=== PATIENT | female | born 1960 | race Caucasian/White ===

== ENCOUNTER 2019-01-03 15:43 | Emergency (ER) | payer OTHER ==
[2019-01-03] MEDS ORDERED: IPRATROPIUM BROM 0.5MG/2.5ML ONE (16:09)
[2019-01-03] MEDS ORDERED: ALBUTEROL 2.5 MG/3 ML NEB SOL ONE (16:09)
--- NOTE | 2019-01-03 17:11 | ER ---
Nurse's Notes [facility] Name: Sera Gonzalez Age: 58 yrs Sex: Female : 1960 Arrival Date: 01/03/2019 Time: 15:47 Bed 13 Private MD: Diagnosis: Bronchitis, not specified as acute or chronic Presentation: 01/03 15:53 Presenting complaint: Patient states: fever Tmax 101 , fatigue, cough since Monday. Insurance company prescribed Tamiflu and Prednisone but painful cough has been persistent. Transition of care: patient was not received from another setting of care. Onset of symptoms was December 30, 2018. Risk Assessment: Do you want to hurt yourself or someone else? Patient reports no desire to harm self or others. Care prior to arrival: None. 15:53 Method Of Arrival: Ambulatory sv 15:53 Acuity: SHAKA 3 sv 15:53 Initial Sepsis Screen: Does the patient meet any 2 criteria? No. Patient's initial sv sepsis screen is negative. Does the patient have a suspected source of infection? No. Patient's initial sepsis screen is negative. Triage Assessment: 15:53 General: Appears in no apparent distress. uncomfortable, Behavior is cooperative, sv appropriate for age. Neuro: Level of Consciousness is awake, alert, obeys commands, Gait is steady. Respiratory: Reports cough that is persistent pain with cough pain with respiration Respiratory effort is even, unlabored, Respiratory pattern is regular, symmetrical. Historical: - Allergies: 15:55 No Known Allergies; sv - Home Meds: 15:55 Singulair Oral [Active]; Clonazepam Oral [Active]; sv - PMHx: 15:55 High Cholesterol; Anxiety; sv - PSHx: 15:55 None; sv - Immunization history:: Adult Immunizations unknown. - Ebola Screening: : No symptoms or risks identified at this time. - Social history:: Smoking status: Patient/guardian denies using tobacco. Screenin:59 Abuse screen: Denies threats or abuse. Denies injuries from another. Nutritional ph screening: No deficits noted. Tuberculosis screening: No symptoms or risk factors identified. Fall Risk None identified. Assessment: 16:15 General: Appears in no apparent distress. uncomfortable, Behavior is calm, cooperative, ph appropriate for age. Pain: Complains of pain in left lateral posterior chest, right lateral posterior chest, left lateral anterior chest and right lateral anterior chest. 16:15 Neuro: Level of Consciousness is awake, alert, obeys commands, Oriented to person, ph place, time, situation. Cardiovascular: Capillary refill < 3 seconds in bilateral fingers Patient's skin is warm and dry. Respiratory: Reports cough that is Airway is patent Respiratory effort is even, unlabored, Respiratory pattern is regular, symmetrical, Breath sounds are coarse bilaterally. Breath sounds with wheezes in right upper lobe. GI: No signs and/or symptoms were reported involving the gastrointestinal system. Derm: Skin is intact, is healthy with good turgor, Skin is pink, warm \T\ dry. Musculoskeletal: Circulation, motion, and sensation intact. Range of motion: intact in all extremities. 17:06 Reassessment: Patient appears in no apparent distress at this time. Patient and/or ph family updated on plan of care and expected duration. Pain level reassessed. Patient is alert, oriented x 3, equal unlabored respirations, skin warm/dry/pink. Vital Signs: 15:55 BP 132 / 84; Pulse 94; Resp 20; Temp 97.6; Pulse Ox 95% ; Weight 64.41 kg; Height 5 ft. sv 6 in. (167.64 cm); Pain 2/10; 17:07 BP 127 / 86; Pulse 94; Resp 18; Pulse Ox 97% on R/A; ph 15:55 Body Mass Index 22.92 (64.41 kg, 167.64 cm) sv ED Course: 15:47 Patient arrived in ED. rg4 15:55 Triage completed. sv 15:56 Arm band placed on. sv 15:57 Natalie Hendricks RN is Primary Nurse. ph 15:57 Adele Chung FNP-C is PHCP. kb 15:57 Kendell Palacio MD is Attending Physician. kb 15:59 Patient has correct armband on for positive identification. Bed in low position. Call ph light in reach. Side rails up X 1. Pulse ox on. NIBP on. 17:12 Chest Pa And Lat (2 Views) XRAY In Process Unspecified. EDMS 17:30 No provider procedures requiring assistance completed. Patient did not have IV access ph during this emergency room visit. Administered Medications: 16:15 Drug: DuoNeb (3:1) (2.5 mg - 0.5 mg) 3 ml Route: Nebulizer; ph 17:30 Follow up: Response: No adverse reaction ph Outcome: 17:10 Discharge ordered by . kb 17:58 Patient left the ED. ph 17:58 Discharged to home ambulatory. ph 17:58 Condition: good 17:58 Discharge instructions given to patient, Instructed on discharge instructions, follow up and referral plans. medication usage, Demonstrated understanding of instructions, follow-up care, medications, Prescriptions given X 1. Signatures: Dispatcher [employer] EDAdele Messer, Brittany Love, RN RN Natalie Hendricks RN RN Deedee Vigil rg4 Corrections: (The following items were deleted from the chart) 16:07 15:53 Presenting complaint: Patient states: fever Tmax 101 , fatigue, cough since sv Mehrdad. Insurance company prescribed Tamiflu and Prednisone. 17:30 16:15 Pain: Complains of pain in left lateral posterior chest, right lateral posterior ph chest, left lateral anterior chest and right lateral anterior chest ph
--- NOTE | 2019-01-03 17:11 | EDPHYS ---
Physician Documentation [facility] Name: Sera Gonzalez Age: 58 yrs Sex: Female : 1960 Arrival Date: 01/03/2019 Time: 15:47 Bed 13 Private MD: PETE Physician Kendell Palacio HPI: 01/03 16:01 This 58 yrs old Female presents to ER via Ambulatory with complaints of kb Painful Cough. 16:01 The patient or guardian reports cough, that is intermittent, described as moderate, kb with no sputum, difficulty breathing, flu symptoms, low-grade fever, myalgias. Onset: The symptoms/episode began/occurred 5 day(s) ago. Severity of symptoms: At their worst the symptoms were moderate, in the emergency department the symptoms are unchanged. Modifying factors: The symptoms are alleviated by nothing, the symptoms are aggravated by nothing. Associated signs and symptoms: Pertinent positives: fever, Pertinent negatives: chest pain, diarrhea, ear ache, nausea, rhinorrhea, sore throat, vomiting. The patient has not experienced similar symptoms in the past. The patient has not recently seen a physician. Pt reports cough, congestion, fever, body aches that started on Monday. Called the MD line and was given tamiflu and prednisone. States she hasn't had a fever since then, but her cough has been getting worse and she feels run down. . Historical: - Allergies: 15:55 No Known Allergies; sv - Home Meds: 15:55 Singulair Oral [Active]; Clonazepam Oral [Active]; sv - PMHx: 15:55 High Cholesterol; Anxiety; sv - PSHx: 15:55 None; sv - Immunization history:: Adult Immunizations unknown. - Ebola Screening: : No symptoms or risks identified at this time. - Social history:: Smoking status: Patient/guardian denies using tobacco. ROS: 16:01 ENT: Negative for injury, pain, and discharge, Neck: Negative for injury, pain, and kb swelling, Cardiovascular: Negative for chest pain, palpitations, and edema, Abdomen/GI: Negative for abdominal pain, nausea, vomiting, diarrhea, and constipation, Back: Negative for injury and pain, : Negative for injury, bleeding, discharge, and swelling, MS/Extremity: Negative for injury and deformity, Skin: Negative for injury, rash, and discoloration, Neuro: Negative for headache, weakness, numbness, tingling, and seizure. 16:01 Constitutional: Positive for body aches, fatigue, fever, malaise. 16:01 Respiratory: Positive for cough, Negative for dyspnea on exertion, hemoptysis, orthopnea, pleurisy, shortness of breath, sputum production, wheezing. Exam: 16:01 Constitutional: This is a well developed, well nourished patient who is awake, alert, kb and in no acute distress. Head/Face: Normocephalic, atraumatic. ENT: Nares patent. No nasal discharge, no septal abnormalities noted. Tympanic membranes are normal and external auditory canals are clear. Oropharynx with no redness, swelling, or masses, exudates, or evidence of obstruction, uvula midline. Mucous membranes moist. Neck: Trachea midline, no thyromegaly or masses palpated, and no cervical lymphadenopathy. Supple, full range of motion without nuchal rigidity, or vertebral point tenderness. No Meningismus. Chest/axilla: Normal chest wall appearance and motion. Nontender with no deformity. No lesions are appreciated. Cardiovascular: Regular rate and rhythm with a normal S1 and S2. No gallops, murmurs, or rubs. Normal PMI, no JVD. No pulse deficits. Abdomen/GI: Soft, non-tender, with normal bowel sounds. No distension or tympany. No guarding or rebound. No evidence of tenderness throughout. Skin: Warm, dry with normal turgor. Normal color with no rashes, no lesions, and no evidence of cellulitis. MS/ Extremity: Pulses equal, no cyanosis. Neurovascular intact. Full, normal range of motion. Neuro: Awake and alert, GCS 15, oriented to person, place, time, and situation. Cranial nerves II-XII grossly intact. Motor strength 5/5 in all extremities. Sensory grossly intact. Cerebellar exam normal. Normal gait. 16:01 Respiratory: the patient does not display signs of respiratory distress, Respirations: normal, Breath sounds: rhonchi, that are moderate, are scattered, wheezing: expiratory that is mild, is heard in the right middle lobe, lungs clear after cough. Vital Signs: 15:55 BP 132 / 84; Pulse 94; Resp 20; Temp 97.6; Pulse Ox 95% ; Weight 64.41 kg; Height 5 ft. sv 6 in. (167.64 cm); Pain 2/10; 17:07 BP 127 / 86; Pulse 94; Resp 18; Pulse Ox 97% on R/A; ph 15:55 Body Mass Index 22.92 (64.41 kg, 167.64 cm) sv MDM: 15:57 Patient medically screened. kb 16:03 Data reviewed: vital signs, nurses notes. Data interpreted: Pulse oximetry: on room air kb is 95 %. Interpretation: normal. 17:08 Counseling: I had a detailed discussion with the patient and/or guardian regarding: the kb historical points, exam findings, and any diagnostic results supporting the discharge/admit diagnosis, lab results, the need for outpatient follow up, a family practitioner, to return to the emergency department if symptoms worsen or persist or if there are any questions or concerns that arise at home. 01/03 15:58 Order name: Flu kb 01/03 15:58 Order name: Chest Pa And Lat (2 Views) XRAY kb Administered Medications: 16:15 Drug: DuoNeb (3:1) (2.5 mg - 0.5 mg) 3 ml Route: Nebulizer; ph 17:30 Follow up: Response: No adverse reaction ph Disposition: 01/04 06:42 Co-signature as Attending Physician, Kendell Palacio MD I agree with the assessment and erasmo plan of care. Disposition: 01/03/19 17:10 Discharged to Home. Impression: Bronchitis, not specified as acute or chronic. - Condition is Stable. - Discharge Instructions: Acute Bronchitis, [id number], Viral Respiratory Infection, [id number]-Iqly. - Prescriptions for Albuterol Sulfate 90 mcg/actuation - inhale 1-2 puff by INHALATION route every 4-6 hours; 1 Inhaler. - Work release form, Medication Reconciliation Form, Thank You Letter, Antibiotic Education, Prescription Opioid Use form. - Follow up: Emergency Department; When: As needed; Reason: Worsening of condition. Follow up: Private Physician; When: 2 - 3 days; Reason: Recheck today's complaints, Continuance of care, Re-evaluation by your physician. Signatures: Dispatcher [employer] Adele Colon FNP-C FNP-Ckb Verde, Stephanie, RN RN sv Anderson, Corey, MD MD cha Hall, Patricia, RN RN ph Corrections: (The following items were deleted from the chart) 01/03 16:04 16:01 Respiratory: the patient does not display signs of respiratory distress, kb Respirations: normal, Breath sounds: rhonchi, that are moderate, are scattered, wheezing: expiratory that is mild, is heard in the right middle lobe, kb 17:58 17:10 01/03/2019 17:10 Discharged to Home. Impression: Bronchitis, not specified as ph acute or chronic. Condition is Stable. Forms are Medication Reconciliation Form, Thank You Letter, Antibiotic Education, Prescription Opioid Use. Follow up: Emergency Department; When: As needed; Reason: Worsening of condition. Follow up: Private Physician; When: 2 - 3 days; Reason: Recheck today's complaints, Continuance of care, Re-evaluation by your physician. kb
[2019-01-03 18:19] VITALS: TEMP 97.6
[2019-01-03 18:20] VITALS: BP 127/86; O2SAT 97
--- NOTE | 2019-01-05 12:20 | RAD REPORT ---
EXAM DESCRIPTION: RAD - Chest Pa And Lat (2 Views) - 01/04/2019 7:01 pm CLINICAL HISTORY: COUGH, fatigue, fever COMPARISON: AP chest October 2007 TECHNIQUE: PA and lateral views of the chest were obtained. FINDINGS: The lungs are clear of peripheral mass or consolidation. No acute failure or volume overlo ad suspected. Interstitial pattern is prominent and increased over prior imaging. This could be progr essive mild fibrotic change or a minimal interstitial edema or infiltrate. Trachea is midline. Hear t size is normal and central vasculature is within normal limits. No pleural effusion or pneumothora x seen. No acute bone finding. Thoracic scoliotic curvature present similar to comparison. No aortic abnormality. IMPRESSION: No focal mass or consolidation. No significant failure or volume overload. Interstitial pattern is increased slightly from comparison which could be progression of interstitial lung disease, minimal edema or minimal infiltrate.
== END 2019-01-03 17:58 | disposition home or self-care (01) ==
LOC: ER 15:43
DX: J40 Bronchitis, not specified as acute or chronic (principal); F41.9 Anxiety disorder, unspecified; E78.00 Pure hypercholesterolemia, unspecified
CPT/HCPCS: 71046; 87804; 94640; 99284

== ENCOUNTER 2022-08-25 11:15 | Emergency (ER) | payer OTHER ==
--- OUTSIDE RECORDS SUMMARY | 2022-08-25 11:19 | XMS REPORT | Continuity of Care Document ---
:1960 Author Organization [facility] t Address [address] [facility] [address] [facility]. [address] [place] [address] Care Team Providers Name Role Phone LAKESHA MOMIN Primary Care Physician Unavailable Karolyn ABREU, Priti Chu Attending Clinician HASMUKH RAMIREZ Attending Clinician Unavailable Eron Mcrae MD Attending Clinician Hasmukh Ramirez DO Attending Clinician MG SHARMA Attending Clinician Unavailable Mg Price S Attending Clinician RORO KWON Attending Clinician Unavailable [facility] Attending Clinician Unavailable Unknown, Attending Attending Clinician Unavailable Doctor Unassigned, [place] Attending Clinician Unavailable ANISHA MCKINNEY Attending Clinician Unavailable Anisha Mckinney DO Attending Clinician ABIMAEL MARIE Attending Clinician Unavailable MIRI MIRANDA Attending Clinician Unavailable PRABHJOT CAMPBELL Attending Clinician Unavailable MALCOLM QUEVEDO Attending Clinician Unavailable LAKESHA MOMIN Attending Clinician Unavailable HASMUKH RAMIREZ Admitting Clinician Unavailable Hasmukh Ramirez DO Admitting Clinician ANISHA MCKINNEY Admitting Clinician Unavailable ABIMAEL MARIE Admitting Clinician Unavailable Payers Payer Name Policy Type Policy Number Effective Date Expiration Date Philippe ROSAS II [id number] 2017 00:00:00 Problems Condition Condition Condition Status Onset Resolution Last Treating Co mments Source Name Details Category Date Date Treatment Clinician Date Shortness Shortness Disease Active 2021-04 Uni vers of breath of breath 04-08 ity of 00:00: [place] 00 Medical [place] No known No known Disease Unive rs active active ity of problems problems [facility] Allergies, Adverse Reactions, Alerts Allergy Allergy Status Severity Reaction(s) Onset Inactive Treating Comm ents Source Name Type Date Date Clinician LATEX DRUG Active Rash Univers INGREDI 11-09 ity of 00:00: [place] 00 Medical Branch Latex Propensi Active Rash Univers ty to 11-09 ity of adverse 00:00: [place] reaction 00 [facility] s [place] NO KNOWN Drug Active Univers ALLERGIE Class ity of S [facility] Social History Social Habit Start Date Stop Date Quantity Comments Source ASSERTION [facility] History of Passive smoker University of tobacco use [facility] Alcohol intake 2022-02-08 2022-02-08 University of 00:00:00 00:00:00 [facility] Exposure to 2022-01-27 2022-02-06 Not sure [facility] SARS-CoV-2 00:00:00 13:01:00 [facility] (event) [place] Alcohol Comment 2022-02-06 2022-02-06 social Universit y of 00:00:00 00:00:00 [facility] Tobacco use and 2022-02-06 2022-02-06 Smokeless tobacco Un iversity of exposure 00:00:00 00:00:00 non-user [facility] Sex Assigned At [address] [facility] 00:00:00 00:00:00 [facility] Center Smoking Status Start Date Stop Date Source Never smoked tobacco [facility] Occasional tobacco smoker 2019-12-17 00:00:00 Un iversity of [facility] Medications Ordered Filled Start Stop Current Ordering Indication Dosage Frequency Signature Comments Components Source Medication Medication Date Date Medication? Clinician (SIG) Name Name bisacodyL 2021-04 No 10mg 10 mg, Unive rs (DULCOLAX) 04-09 Rectal, ity o f suppository 22:30: 21:57 ONCE, 1 [place] 10 mg 00 :00 dose, On Medical [facility] 02/07/22 at 1630, Routine clonazePAM 2021-04 Yes .5mg Take 0.5 Uni vers 0.5 mg 1-07 mg by ity of tablet 17:19: mouth at [place] [address] bedtime as Medical needed Branch (anxiety). simvastatin 2021-04 Yes 40mg Take 40 mg Univers 40 mg 1-07 by mouth ity of tablet 17:19: at [place] [address] bedtime. Medical Branch omeprazole 2021-04 Yes 40mg Take 40 mg U nivers 20 mg 1-07 by mouth ity of capsule 17:19: in the [place] [address] morning. Medical Branch famotidine 2021-04 Yes 40mg Take 40 mg U nivers 40 mg 1-07 by mouth ity of tablet 17:19: at [place] [address] bedtime. Medical Branch clonazePAM 2021-04 Yes .5mg Take 0.5 Uni vers 0.5 mg 1-07 mg by ity of tablet 17:19: mouth at [place] [address] bedtime as Medical needed Branch (anxiety). simvastatin 2021-04 Yes 40mg Take 40 mg Univers 40 mg 1-07 by mouth ity of tablet 17:19: at [place] [address] bedtime. Medical Branch omeprazole 2021-04 Yes 40mg Take 40 mg U nivers 20 mg 1-07 by mouth ity of capsule 17:19: in the [place] [address] morning. Medical Branch famotidine 2021-04 Yes 40mg Take 40 mg U nivers 40 mg 1-07 by mouth ity of tablet 17:19: at [place] [address] bedtime. Medical Branch omeprazole 2021-04 Yes 40mg 40 mg, Unive rs (PRILOSEC) 1-07 Oral, ity of capsule 40 15:00: DAILY, [place] mg 00 First dose Medical on [facility] 02/07/22 at 0900, Until Discontinu ed, Routine aspirin 2021-04 Yes 325mg 325 mg, Univer s tablet 325 -07 Oral, ity of mg 15:00: DAILY, [place] 00 First dose Medical on [facility] 02/07/22 at 0900, Until Discontinu ed, Routine codeine-gua 2021-04 Yes 10mL 10 mL, Univ ers ifenesin 1-07 Oral, ity of (ROBITUSSIN 05:23: Q6HPRN, [place] AC) 10-100 52 Starting Medic al mg/5 mL on [facility] oral 02/06/22 at solution 10 2323, mL Until Discontinu ed, Routine, Cough famotidine 2021-04 Yes 40mg 40 mg, Unive rs (PEPCID AC) 1-07 Oral, QHS, it y of tablet 40 03:00: First dose [place] mg 00 on [facility] 02/06/22 at Branch 2100, Until Discontinu ed, Routine budesonide 2021-04 Yes .25mg 0.25 mg, Un lilly (PULMICORT 04-09 Inhalation ity of RESPULE) 02:00: , BID, [place] nebulizer 00 First dose Medi jenn solution on [facility] 0.25 mg 02/06/22 at 2000, Until Discontinu ed, Routine doxycycline 2021-04- No [id number] 100mg Take 1 Univers hyclate 100 04-09 capsule by i ty of mg capsule 00:00: 05:59 mouth [place] 00 :00 every 12 [facility] [place] hours for 5 days. predniSONE 2021-04- No [id number] 40mg Take 2 Univers 20 mg 04-09 tablets by ity of tablet 00:00: 05:59 mouth in [place] 00 :00 the [facility] for 5 days. doxycycline 2021-04- No [id number] 100mg Take 1 Univers hyclate 100 04-09 capsule by i ty of mg capsule 00:00: 05:59 mouth [place] 00 :00 every 12 [facility] [place] hours for 5 days. predniSONE 2021-04- No [id number] 40mg Take 2 Univers 20 mg 04-09 tablets by ity of tablet 00:00: 05:59 mouth in [place] 00 :00 the [facility] Branch for 5 days. oseltamivir 2021-04- No [id number] 75mg Take 1 Univers 75 mg 04-09 capsule by ity of capsule 00:00: 05:59 mouth in [place] 00 :00 the [facility] Branch and 1 capsule in the evening. Do all this for 4 days. oseltamivir 2021-04- No [id number] 75mg Take 1 Univers 75 mg 04-09 capsule by ity of capsule 00:00: 05:59 mouth in [place] 00 :00 the Medical morning Branch and 1 capsule in the evening. Do all this for 4 days. zolpidem 2021-04 Yes 5mg 5 mg, Univers (AMBIEN) 04-08 Oral, ity of tablet 5 mg 23:33: QHSPRN, [place] as 44 Starting Medical on [facility] 02/06/22 at 1733, Until Discontinu ed, Routine, Insomnia clonazePAM 2021-04 Yes .5mg 0.5 mg, Univ ers (KLONOPIN) 04-08 Oral, ity of tablet 0.5 23:33: BIDPRN, [place] mg 24 Starting Medical on [facility] 02/06/22 at 1733, Until Discontinu ed, Routine, anxiety enoxaparin 2021-04 Yes 40mg 40 mg, Unive rs (LOVENOX) 04-08 Subcutaneo ity of injection 23:00: [place], DAILY, [place] 40 mg 00 First dose Medical on [facility] 02/06/22 at 1700, Until Discontinu ed, Routine ipratropium 2021-04 Yes 3mL 3 mL, Unive rs -albuteroL 04-08 Inhalation ity of (DUONEB) 22:00: , Q4H, [place] 0.5 mg-3 00 First dose Medic al mg(2.5 mg on [facility] base)/3 mL 02/06/22 at nebulizer 1600, solution 3 Until mL Discontinu ed, Routine doxycycline 2021-04 No 100mg 100 mg, U nivers hyclate 04-0811 Oral, Q12H ity o f (Vibramycin 21:30: 21:14 ABX, 10 [place] capsule 00 :00 doses, Medical 100 mg First dose Branch on 02/06/22 at 1530, Last dose on Mon02/11/22 at 0330, JONATHAN
Re ason for Anti-Infec tive: Documented Infection< br>Documen adilene Infection Site: Respirator y
Durat ion of Therapy: 7 days oseltamivir 2021-04 No 75mg 75 mg, Uni vers (TAMIFLU) 04-0812 Oral, BID, ity of capsule 75 21:18: 01:59 10 doses, [place] mg 54 :00 First dose Medical on [place] 02/06/22 at 2000, Last dose on Mon02/11/22 at 0800, Routine HYDROcodone 2021-04 Yes 1{tbl} 1 tablet, Univers -acetaminop 04-08 Oral, ity of hen (NORCO) 21:11: Q6HPRN, [place] as 10-325 mg 07 Starting Medica l tablet 1 on [facility] tablet 02/06/22 at 1511, Until Discontinu ed, Routine, Pain (scale 7-10) traMADoL 2021-04- No 50mg 50 mg, Univer s (ULTRAM) 04-0808 Oral, ity of tablet 50 21:11: 21:10 Q8HPRN, [place] mg 04 :04 Starting Medical on [place] Branch 02/06/22 at 1511, Until Mon02/08/22 at 1510, Routine, Pain (scale 4-6) acetaminoph 2021-04 Yes 650mg 650 mg, Un lilly en 04-08 Oral, ity of (TYLENOL) 21:10: Q6HPRN, [place] tablet 650 41 Starting Medic al mg on [place] Branch 02/06/22 at 1510, Until Discontinu ed, Routine, Pain (scale 1-3) oseltamivir 2021-04- No 75mg 75 mg, Uni vers (TAMIFLU) 04-08 Oral, ONCE ity of capsule 75 19:15: 18:44 NOW, 1 [place] mg 00 :00 dose, On Medical [facility] 02/06/22 at 1315, Routine ipratropium 2021-04- No 3mL 3 mL, Univ ers -albuteroL 04-08 Inhalation it y of (DUONEB) 17:00: 17:06 , Q10M, 3 [place] as 0.5 mg-3 00 :00 doses, Medical mg(2.5 mg First dose Bran ch base)/3 mL on [place] nebulizer 02/06/22 at solution 3 1100, Last mL dose on 02/06/22 at 1120, Routine methylpredn 2021-04- No 125mg 125 mg, U nivers isolone sod 04-08 Intravenou i ty of succ 16:45: 16:05 s, ONCE, 1 [place] (SOLU-MEDRO 00 :00 dose, On Medi jenn L) [place] injection 02/06/22 at 125 mg 1045, 2 mL iopamidol 2021-04- No [id number] 100mL 100 mL, Univers (ISOVUE 04-08 11-06 Intravenou ity o f 370-500 mL) 16:30: 16:47 s, ONCE, 1 [place] injection 00 :00 dose, On Medica l 100 mL [place] 02/06/22 at 1030, Routine NaCl 0.9% 2021-04- No 500mL at 999 Univ ers (NS) bolus 04-08 mL/hr, 500 it y of infusion 16:00: 17:21 mL, IV [place] 500 mL 00 :00 Infusion, Medical ONCE, 1 Branch dose, On [place] 02/06/22 at 1000, STAT amoxicillin Yes [id number] 875mg Take 1 Univers 875 mg 9-25 tablet by ity of tablet 00:00: mouth in [place] 00 the Medical morning Branch and 1 tablet in the evening. amoxicillin 2021- No [id number] 875mg Take 1 Univers 875 mg 9-25 11-07 tablet by ity of tablet 00:00: 00:00 mouth in [place] 00 :00 the Medical morning Branch and 1 tablet in the evening. chlorhexidi 2021- No [id number] 15mL Swish and Univers ne (PAROEX 9-25 10-03 spit out ity of ORAL RINSE) 00:00: 04:59 15 mL in [place] 0.12 % 00 :00 the Medical mouthwash morning Branch and 15 mL in the evening. Do all this for 7 days. famotidine 2021- No 20mg 20 mg, Univ ers (PEPCID 11-10 08-10 Slow IV ity of (PF)) 02:30: 01:38 Push, [place] injection 00 :00 ONCE, 1 Medical 20 mg dose, On Branch 11/09/21 at 2130, Routine FENTanyl PF 2021- No 50ug 50 mcg, Un lilly (SUBLIMAZE 11-10 08-10 Slow IV ity o f (PF)) 02:30: 01:38 Push, [place] injection 00 :00 ONCE, 1 Medical 50 mcg dose, On Branch Mon11/09/21 at 2130, Routine NaCl 0.9% 2021- No 1000mL at 999 Uni vers (NS) bolus 11-10 08-10 mL/hr, ity of infusion 02:30: 03:22 1,000 mL, [place] as 1,000 mL 00 :00 IV Medical Infusion, Branch ONCE, 1 dose, On Mon11/09/21 at 2130, JONATHAN iopamidol 2021- No [id number] 64mL 64 mL, U nivers (ISOVUE 11-10 08-10 Intravenou ity o f 370-500 mL) 02:10: 02:10 s, ONCE, 1 [place] injection 00 :00 dose, On Medica l 64 mL Mon11/09/21 Branch at 2130, Routine ondansetron 2021- No 4mg 4 mg, Slow Univers (ZOFRAN 11-10 IV Push, ity of (PF)) 01:30: 01:38 ONCE, 1 [place] injection 4 00 :00 dose, On Medi jenn mg Mon11/09/21 Branch at 2030, JONATHAN sulfamethox 2021- No [id number] 1{tbl} Take 1 Univers azole-trime 11-09 08-15 tablet by it y of oprim 00:00: 04:59 mouth [place] 800-160 mg 00 :00 every 12 Medic al per tablet (twelve) Branc h hours for 5 days. sucralfate 2020-0 Yes [id number] 1g Take 1 Univers 1 gram 5-08 tablet by ity of tablet 00:00: mouth [place] 00 before Medical meals and Branch at bedtime. sucralfate 2020-0 Yes [id number] 1g Take 1 Univers 1 gram 5-08 tablet by ity of tablet 00:00: mouth [place] 00 before Medical meals and Branch at bedtime. dicyclomine 2020-0 Yes [id number] 10mg Take 1 Univers 10 mg 5-08 capsule by ity of capsule 00:00: mouth [place] 00 every 8 Medical (eight) Branch hours as needed for Abdominal pain. dicyclomine 2020-0 Yes [id number] 10mg Take 1 Univers 10 mg 5-08 capsule by ity of capsule 00:00: mouth [place] 00 every 8 Medical (eight) Branch hours as needed for Abdominal pain. sucralfate 2020-0 Yes [id number] 1g Take 1 Univers 1 gram 5-08 tablet by ity of tablet 00:00: mouth [place] 00 before Medical meals and Branch at bedtime. dicyclomine 2020-0 Yes [id number] 10mg Take 1 Univers 10 mg 5-08 capsule by ity of capsule 00:00: mouth [place] 00 every 8 Medical (eight) Branch hours as needed for Abdominal pain. sucralfate 2020-0 Yes [id number] 1g Take 1 Univers 1 gram 5-08 tablet by ity of tablet 00:00: mouth [place] 00 before Medical meals and Branch at bedtime. dicyclomine 2020-0 Yes [id number] 10mg Take 1 Univers 10 mg 5-08 capsule by ity of capsule 00:00: mouth [place] 00 every 8 Medical (eight) Branch hours as needed for Abdominal pain. sucralfate 2020-0 Yes [id number] 1g Take 1 Univers 1 gram 5-08 tablet by ity of tablet 00:00: mouth [place] 00 before Medical meals and Branch at bedtime. dicyclomine 2020-0 Yes [id number] 10mg Take 1 Univers 10 mg 5-08 capsule by ity of capsule 00:00: mouth [place] 00 every 8 Medical (eight) Branch hours as needed for Abdominal pain. sucralfate 2020-0 2- No [id number] 1g Take 1 Univers 1 gram 5-08 11-07 tablet by ity of tablet 00:00: 00:00 mouth [place] 00 :00 before Medical meals and Branch at bedtime. dicyclomine 2020-0 2- No [id number] 10mg Take 1 Univers 10 mg 5-08 11-07 capsule by ity of capsule 00:00: 00:00 mouth [place] 00 :00 every 8 Medical (eight) Branch hours as needed for Abdominal pain. montelukast Yes 10mg QD Take [address] [facility] (SINGULAIR) 5-05 by mouth [facility] 10 mg 09:59: nightly. Medical tablet 21 Center clonazePAM 2017- Yes .5mg Take 0.[address] [facility] (KLONOPIN) 5-05 mg by [facility].5 MG 09:59: mouth Medical tablet 21 every Center night as needed for Anxiety. Immunizations Ordered Filled Immunization Date Status Comments Sour e Immunization Name Name Td 2021-12-26 Completed University of 00:00:00 [place] [facility] Branch Td 2021-12-26 Completed University of 00:00:00 [place] [facility] Td 2021-12-26 Completed University 00:00:00 [facility] Vital Signs Vital Name Observation Time Observation Value Comments Source Heart rate 2022-02-07 21:13:00 103 /min Universi ty of [facility] Respiratory rate 2022-02-07 21:13:00 22 /min Univ ersity of [facility] Oxygen saturation in 2022-02-07 21:13:00 96 /min [facility] Arterial blood by [facility] Pulse oximetry Branch Systolic blood 2022-02-07 17:44:00 132 mm[Hg] Univer sity of pressure [facility] Diastolic blood 2022-02-07 17:44:00 85 mm[Hg] [facility] Body temperature 2022-02-07 17:44:00 36.83 Aracelis Univ ersity of [facility] Body weight 2022-02-07 10:01:00 69.99 kg Universi ty of [facility] BMI 2022-02-07 10:01:00 24.90 kg/m2 Universi ty of [facility] Body height 2022-02-06 19:09:00 167.6 cm Universi ty of [facility] Systolic blood 2021-12-26 15:00:00 163 mm[Hg] Univer sity of pressure [facility] Diastolic blood 2021-12-26 15:00:00 89 mm[Hg] Unive rsity of pressure [facility] Heart rate 2021-12-26 15:00:00 92 /min Universi ty of [facility] Body temperature 2021-12-26 15:00:00 36.89 Aracelis Univ ersity of [facility] Body height 2021-12-26 15:00:00 167.6 cm Universi ty of [facility] Body weight 2021-12-26 15:00:00 68.947 kg Universi ty of [facility] BMI 2021-12-26 15:00:00 24.53 kg/m2 Universi ty of [facility] Oxygen saturation in 2021-12-26 15:00:00 95 /min University of Arterial blood by [facility] Pulse oximetry Branch Systolic blood 2021-12-26 15:26:00 166 mm[Hg] Univer sity of pressure [place] [facility] Diastolic blood 2021-12-26 15:26:00 116 mm[Hg] Unive rsity of pressure [facility] Heart rate 2021-12-26 15:25:00 102 /min Universi ty of [facility] Body temperature 2021-12-26 15:25:00 36.72 Aracelis Univ ersity of [facility] Respiratory rate 2021-12-26 15:25:00 18 /min Univ ersity of [facility] Body height 2021-12-26 15:25:00 167.6 cm Universi ty of [facility] Body weight 2021-12-26 15:25:00 69.446 kg Universi ty of [facility] BMI 2021-12-26 15:25:00 24.71 kg/m2 Universi ty [facility] Oxygen saturation in 2021-12-26 15:25:00 97 /min University of Arterial blood by [facility] Pulse oximetry Branch Systolic blood 2021-11-10 03:20:00 112 mm[Hg] Univer sity of pressure [place] Medical [place] Diastolic blood 2021-11-10 03:20:00 70 mm[Hg] Unive rsity of [facility] Heart rate 2021-11-10 03:20:00 69 /min Universi ty of [facility] Respiratory rate 2021-11-10 03:20:00 14 /min Univ ersity of [facility] Oxygen saturation in 2021-11-10 03:20:00 93 /min University of Arterial blood by [facility] Pulse oximetry Branch Body temperature 2021-11-10 01:21:00 36.44 Aracelis [facility] ersity of [place] Medical [place] Body weight 2021-11-10 01:21:00 70.308 kg Universi ty of [facility] BMI 2021-11-10 01:21:00 25.79 kg/m2 Universi ty [facility] Procedures Procedure Date / Time Performing Clinician Source Performed BASIC METABOLIC PANEL 2022-02-07 10:40:00 Mg Roberto [facility] (NA, K, CL, CO2, GLUCOSE, Medica l Branch BUN, CREATININE, CA) CBC WITH DIFF 2022-02-07 10:40:[address] [facility] HEPATITIS B SURFACE 2022-02-07 03:00:00 Hasmukh Ramirez [facility] ANTIBODY [facility] HEPATITIS B SURFACE 2022-02-07 03:00:00 Hasmukh Ramirez [facility] ANTIGEN [facility] HCV ANTIBODY 2022-02-07 03:00:00 Hasmukh Ramirez [facility] HBC ANTIBODY (IGM & IGG) 2022-02-07 03:00:00 Hasmukh Ramirez [facility] PROCALCITONIN 2022-02-07 03:00:00 Hasmukh Ramirez [facility] CT CHEST PULMONARY 2022-02-06 16:46:12 Eron Mcrae [facility] ANGIOGRAM [facility] Branch XR CHEST 1 VW 2022-02-06 16:31:13 Eron Mcrae [facility] BLOOD CULTURE SCREEN 2022-02-06 16:06:00 Eron Mcrae [facility] RAPID INFLUENZA A/B 2022-02-06 16:01:00 Eron Mcrae [facility] COVID-19 (ID NOW RAPID 2022-02-06 16:01:00 Eron Mcrae [facility] TESTING) Medical [place] LAB ONLY COVID 2022-02-06 16:01:00 Eron Mcrae [facility] INTERPRETATION [facility] TROPONIN I 2022-02-06 15:58:00 Eron Mcrae [facility] COMP. METABOLIC PANEL 2022-02-06 15:58:00 Eron Mcrae [facility] ([id number]) Medical Branch CBC WITH DIFF 2022-02-06 15:58:00 Eron Mcrae [facility] N-TERMINAL PRO-BNP 2022-02-06 15:58:00 Eron Mcrae [facility] CONSENT/REFUSAL FOR 2022-02-06 15:30:55 Doctor Unassigned, [facility] DIAGNOSIS AND TREATMENT [place] Medical Branch CONSENT/REFUSAL FOR 2021-12-26 15:21:43 Doctor Unassigned, [facility] DIAGNOSIS AND TREATMENT [place] Medical [place] CONSENT/REFUSAL FOR 2021-12-26 14:55:53 Doctor Wei [facility] DIAGNOSIS AND TREATMENT [place] Medical [place] URINALYSIS 2021-11-10 03:00:00 Anisha [facility] ABDOMEN PELVIS W 2021-11-10 02:15:00 Anisha Mckinney [facility] CONTRAST Medical Branch LIPASE 2021-11-10 01:25:00 Anisha [facility] TROPONIN I 2021-11-10 01:25:00 Anisha [facility] COMP. METABOLIC PANEL 2021-11-10 01:25:00 Anisha Mckinney [facility] ([id number]) [facility] CBC WITH DIFF 2021-11-10 01:25:00 Anisha [facility] COVID-19 (ID NOW RAPID 2021-11-10 01:25:00 [facility] NOTICE OF PRIVACY 2021-11-10 01:13:21 Augustin Lee [facility] PRACTICES [place] [facility] CONSENT/REFUSAL FOR 2021-11-10 01:12:49 [facility] DIAGNOSIS AND TREATMENT [place] [facility] Encounters Start End Encounter Admission Attending Care Care Encounter Source Date/Time Date/Time Type Type Clinicians Facility Department ID 2021-01-31 Emergency [facility] [id number] [facility] 2022-02-09 Transition BRITT Parr [id number] Univers 00:00:00 00:00:00 of Care Priti RIVERA [id number] i ty of DANISH [id number] Araceli funk [id number] [place] [address] Branch 2022-02-06 2022-02-07 Outpatient Neetu RAMIREZ [facility] GITA [id number] Univers 09:41:00 17:18:00 HASMUKH [facility] 2022-02-06 2022-02-07 [facility] Eron Mcrae [facility] [id number] .[id number] Univers 09:41:00 17:18:00 Encounter Hasmukh Ramirez [id number] ity [facility] [id number] [facility] [id number] [facility] 081 [place] 2021-12-26 2021-12-26 Emergency [facility] [id number] Univers 10:35:00 11:39:00 MG ity [facility] 2021-12-26 2021-12-26 [facility] [id number] Univers 10:35:00 11:39:00 Mg [place] [id number] [facility] 4.2.7.2.686 [facility] [id number] [place] [id number] [place] 2021-12-26 2021-12-26 Outpatient R DOYLE [facility] [id number] Univers 10:00:00 10:26:03 RORO [facility] 2021-12-26 2021-12-26 Nurse Nurse, Cristofer [facility] [id number] Univers 10:00:00 10:26:03 Visit Unknown, Attending HEALTH [id number] ity charlene [place] 4.2.7.2.686 [place] as RL?BLEA [id number] [address] MEDICAL OFFICE BUILDING 2021-12-26 2021-12-26 Orders Doctor PRABHJOT [id number] Univers 00:00:00 00:00:00 Only Unassigned, NAFISA [id number] ity of [place] [facility] [id number] [place] as [id number] [facility] 009 Branch 2021-11-09 2021-11-09 Emergency X FAYE [facility] ERT [id number] Univers 20:16:00 22:48:00 ANISHA farmer [facility] 2021-11-09 2021-11-09 [facility] [id number] Univers 20:16:00 22:48:00 Anisha [place] [id number] ity of [place] [id number] [place] L[place]ND[place] [id number] [facility] 084 Branch 2021-11-09 2021-11-09 Orders Doctor PRABHJOT [id number] Univers 00:00:00 00:00:00 Only Unassigned, NAFISA [id number] ity of [place] [facility] [id number] [place] [id number] [facility] [address] 2020-08-07 2020-08-08 Emergency X MARIE, [facility] ERT [id number] Univers 21:57:00 02:08:00 ABIMAEL [facility] 2020-03-06 2020-03-06 Outpatient Amadeo MIRANDA [facility] [id number] Univers 15:00:00 15:00:00 MIRI [facility] 2020-01-22 2020-01-22 [facility] [id number] Univers 18:20:00 18:20:00 PRABHJOT [facility] 2019-12-28 2019-12-28 [facility] [id number] Univers 09:20:00 09:20:00 [facility] 2019-12-17 2019-12-17 [facility] [id number] Univers 17:40:00 17:40:00 [facility] 2019-12-17 2019-12-17 [facility] [id number] Univers 17:20:00 17:20:00 [facility] 2017-11-03 2017-11-03 [facility] [id number] [id number] Univers 00:00:00 00:00:00 MALCOLM [facility] 2017-11-03 2017-11-03 [facility] [id number] Univers 00:00:00 00:00:00 [facility] Results Test Description Test Time Test Comments Results Result Comments Source Basic Metabolic Panel (NA, K, CL, CO2, GLUCOSE, BUN, 2022-02 12:01:12 CREATININE, [place]) Test Item Value Reference Range Interpretation Comme nts NA (test code = 9377636979) 135 mmol/L 135-145 K (test code = 5874040179) 3.8 mmol/L 3.5-5.0 CL (test code = 9544688835) 102 mmol/L 98-108 CO2 TOTAL (test code = 2928823306) 30 mmol/L 23-31 AGAP (test code = 8636967886) 2-16 BUN (test code = 2395510012) 13 mg/dL 7-23 GLUCOSE (test code = 4890749102) 107 mg/dL 70-110 CREATININE (test code = 0.74 mg/dL 0.50-1.04 1664808202) CALCIUM (test code = 4500191847) 8.5 mg/dL 8.6-10.6 L eGFR (test code = 9001826724) mL/min/1.73m2 ADRIÁN (test code = ADRIÁN) Association of Glomerular Filtration Rate (GFR) and Staging of Kidney Disease* + +-------- + ------+| GFR (mL/min/1.73 m2) ?| With Kidney Damage ?| ?Without Kidney Damage+ +-- + +| ?>90 ?| ?Stage one ?| ? Normal ?+ +------- + -------+| ?60-89 ?| ?Stage two ?| ? Decreased GFR ? + +-------- + ------+| ?30-59 ?| ?Stage three ?| ? Stage three ? + +-------- + ------+| ?15-29 ?| ?Stage four ? | ? Stage four ?+ +------- + -------+| ?<15 (or dialysis) ? ?| ?Stage five ? | ? Stage five ?+ +------- + -------+ *Each stage assumes the associated GFR level has been in effect for at least three months. ?Stages 1 to 5, with or without kidney disease, indicate chronic kidney disease. Notes: Determination of stages one and two (with eGFR >59mL/min/1.73 m2) requires estimation of kidney damage for at least three months as defined by structural or functional abnormalities of the kidney, manifested by either:Pathological abnormalities or Markers of kidney damage (including abnormalities in the composition of the blood or urine or abnormalities in imaging tests). Lab Interpretation (test code = Abnormal 70815-8) [facility] with [id number] 11:50:08 Test Item Value Reference Range Interpretation Comments WBC (test code = See_Comment H [Automated 6690-2) message] The sy stem which generated this result transmitted reference range : 4.30 - 11.10 10*3/?L. The reference range was not used to interpret this result as normal/abnormal . RBC (test code = See_Comment [Automated 789-8) message] The sy stem which generated this result transmitted reference range : 3.93 - 5.25 10*6/?L. The reference range was not used to interpret this result as normal/abnormal . HGB (test code = 12.3 g/dL 11.6-15.0 718-7) HCT (test code = 36.6 % 35.7-45.2 4544-3) MCV (test code = 91.0 fL 80.6-95.5 787-2) MCH (test code = 30.6 pg 25.9-32.8 785-6) MCHC (test code = 33.6 g/dL 31.6-35.1 786-4) RDW-SD (test code = 43.0 fL 39.0-49.9 92591-3) RDW-CV (test code = 12.9 % 12.0-15.5 788-0) PLT (test code = See_Comment [Automated 777-3) message] The sy stem which generated this result transmitted reference range : 166 - 358 10*3/ ?L. The reference r lloyd was not used to interpret this result as normal/abnormal . MPV (test code = 9.8 fL 9.5-12.9 63203-5) NRBC/100 WBC (test See_Comment [Automat ed code = 9591853173) message] The system which generated this result transmitted reference range : 0.0 - 10.0 /100 WBCs. The refer ence range was not u sed to interpret th is result as normal/abnormal . NRBC x10^3 (test code See_Comment [Auto mated = 5151875248) message] The s ystem which generated this result transmitted reference range : 10*3/?L. The reference range was not used to interpret this result as normal/abnormal . GRAN MAT (NEUT) % 79.4 % (test code = 770-8) IMM GRAN % (test code 1.00 % = 2396861130) LYMPH % (test code = 12.4 % 736-9) MONO % (test code = 7.0 % 5905-5) EOS % (test code = 0.1 % 713-8) BASO % (test code = 0.1 % 706-2) GRAN MAT x10^3(ANC) 8.87 10*3/uL 1.88-7.09 H (test code = 8615560572) IMM GRAN x10^3 (test 0.11 10*3/uL 0.00-0.06 H code = 6998653623) LYMPH x10^3 (test code 1.39 10*3/uL 1.32-3.29 = 731-0) MONO x10^3 (test code 0.78 10*3/uL 0.33-0.92 = 742-7) EOS x10^3 (test code = 0.03-0.39 L 711-2) BASO x10^3 (test code 0.01-0.07 = 704-7) Lab Interpretation Abnormal (test code = 40054-2) [facility] [id number] 08:13:38 Test Item Value Reference Range Interpretation Comments HBsAB (test code = Negative 9285598528) HBsAb mIU/mL Semi-Quantitative (test code = 2104240728) ADRINÁ (test code = Interpretation: ADRIÁN) ?Hepatitis B Surface Antibody ? Negative - Patient is considered to be not immune to infection with HBV. ? ? Positive - Anti-HBs detected at greater than or equal to 12 mIU/mL. ?Patient is considered to be immune to infection with HBV. ? [facility]TIBODY (IGM & IGG)2022-02-07 08:13:38 Test Item Value Reference Range Interpretation Comments HBC (test code = 6237202013) Negative HBC Semi-Quantitative (test code = 0816891101) [facility] [id number] 08:13:38 Test Item Value Reference Range Interpretation Comments HCV Ab (test code = 84365-0) Negative HCV Semi-Quantitative (test code = 86649-9) [facility] [id number] 07:55:14 Test Item Value Reference Range Interpretation Comments HBsAg Semi-Quantitative (test code = Negative Negative 5195-3) [facility]AL[facility]IN2022-11-07 07:10:40 Test Item Value Reference Interpretation Comments Range Procalcitonin (test 0.03 ng/mL See_Comment [Automa adilene code = 9786431956) message] The system which generated this result transmitted reference range: <=0.07. The reference range was not used to interpret this result as normal/abnormal . ADRIÁN (test code = INTERPRETATION OF ADRIÁN) PROCALCITONIN RESULTS IN ADULTS >= 18 YEARS OF AGE Initiation and discontinuation of antibiotics on patients with suspected or confirmed Lower Respiratory Tract Infection in Adults >= 18 years of age. + +------ + ----+ +|Procalcit onin |Interpretation ?|Antibiotic ? ? |Considerations ? |ng/mL ? | ?|recommendation | ? + +------ + ----+ +| <0.1 ? | Bacterial ? ? ?| Strongly ? ? ?| ? | ?| infection very | discouraged ? | Overruling: ? | ?| unlikely ? ? ? | ? | ? Clinically unstable ? ? ? + +------ + ----+ ? High risk for adverse ? ? | <0.25 ?| Bacterial ? ? ?| Discouraged ? | ? outcome ? | ?| infection ? ? ?| ? | ? SEE IMPORTANT NOTE ?| ?| unlikely ? ? ? | ? | ? + +------ + ----+ +| >=0.25 ? ? ? | Bacterial ? ? ?| Encouraged ? ?| ? | ?| infection ? ? ?| ? | ? | ?| likely ? | ? | Consider treatment failure ?+ +----- + -----+ if levels does not decrease | >0.5 ? | Bacterial ? ? ?| Strongly ? ? ?| appropriately ? | ?| infection very | encouraged ? ?| ? | ?| likely ? | ? | ? + +------ + ----+ + Discontinuation of antibiotics in high-acuity patients with suspected or confirmed sepsis in Adults >= 18 years of age. + +------ + ----+ +|Procalcit onin |Interpretation ?|Antibiotic ? ? |Considerations ? |ng/mL ? | ?|recommendation | ? + +------ + ----+ +| <0.25 ?| Bacterial ? ? ?| Strongly ? ? ?| ? | ?| infection very | discouraged ? | Overruling: ? | ?| unlikely ? ? ? | ? | ? Clinically unstable ? ? ? + +------ + ----+ ? High risk for adverse ? ? | <0.5 or drop | Bacterial ? ? ?| Discouraged ? | ? outcome ? | >80% from ? ?| infection ? ? ?| ? | ? SEE IMPORTANT NOTE ?| highest PCT ?| unlikely ? ? ? | ? | ? | level ?| ?| ? | ? + +------ + ----+ +| >=0.5 ?| Bacterial ? ? ?| Encouraged ? ?| ? | ?| infection ? ? ?| ? | ? | ?| likely ? | ? | Consider treatment failure ?+ +----- + -----+ if levels does not decrease | >1.0 ? | Bacterial ? ? ?| Strongly ? ? ?| appropriately ? | ?| infection very | encouraged ? ?| ? | ?| likely ? | ? | ? + +------ + ----+ + Percentage of drop of Procalcitonin calculation for Discontinuation of antibiotics in high-acuity patients with suspected or confirmed sepsis in Adults >= 18 years of age. ? Procalcitonin highest{}-Procalcitoni n current{}Delta Procalcitonin = ___ x100% ? Procalcitonin current {} IMPORTANT NOTE: Procalcitonin may be elevated without bacterial infection by physiologic stress related to trauma, [place], chronic dialysis, metastatic cancer, surgery in the past seven days, malaria, some fungal infections, and some forms of vasculitis. The interpretation algorithm may not apply to patients with immunosuppression (equivalent of >10 mg of prednisone daily), HIV with CD4 cell count < 350 cells/mm3, active malignancy on systemic chemotherapy, solid organ transplant or hematopoietic stem cell transplantation, or hospital acquired pneumonia. Additionally, some clinical trials of procalcitonin have excluded patients with shock requiring vasopressor use, acute respiratory failure requiring mechanical ventilation, or those with known lung abscess/empyema. For further information please refer to:[email or web address] Lab Interpretation Normal (test code = 90634-9) [facility] [id number] 02:35:14 Test Item Value Reference Interpretation Comments Range TROPONIN I (test 0.002 ng/mL See_Comment [Automated code = 3019101464) message] The system which generated this result transmitted reference range : <=0.034. The reference range was not used to interpret this result as normal/abnormal . ADRIÁN (test code = Reference (Normal) ADRIÁN) Range (defined by the 99th percentile reference limit): <= 0.034 ng/mL Note: Cardiac troponin begins to rise 3-4 hours after the onset of ischemia. Repeat in 4-6 hours if the sample was drawn within 3-4 hours of the onset of the symptom and found normal. Diagnosis of myocardial injury is made with acute changes in cTn concentrations with at least one serial sample above the 99th percentile upper reference limit (URL), taken together with the patient's clinical presentation. Biotin has been reported to cause a negative bias, interpret results relative to patient's use of biotin. Lab Interpretation Normal (test code = 53369-0) [facility]. METABOLIC PANEL (55502)2021-11-10 02:24:14 Test Item Value Reference Range Interpretation Comments NA (test code = 138 mmol/L 135-145 4568786468) K (test code = 4.0 mmol/L 3.5-5 6491673922) CL (test code = 100 mmol/L 98-108 9227698997) CO2 TOTAL (test code = 28 mmol/L 23-31 9795304116) AGAP (test code = 2-16 4530760472) BUN (test code = 21 mg/dL 7-23 6388641521) GLUCOSE (test code = 140 mg/dL 70-110 H 2990464281) CREATININE (test code = 0.93 mg/dL 0.5-1.04 5031662914) TOTAL BILI (test code = 0.3 mg/dL 0.1-1.1 5624043049) CALCIUM (test code = 9.3 mg/dL 8.6-10.6 1137748067) T PROTEIN (test code = 6.8 g/dL 6.3-8.2 0452285510) ALBUMIN (test code = 4.5 g/dL 3.5-5 1310438234) ALK PHOS (test code = 53 U/L 34-122 5647103812) ALTv (test code = 36 U/L 5-35 H 1742-6) AST(SGOT) (test code = 32 U/L 13-40 2569614041) eGFR (test code = mL/min/1.73m2 9586609031) DARIÁN (test code = ADRIÁN) Association of Glomerular Filtration Rate (GFR) and Staging of Kidney Disease* + --+ --+ ------+| GFR (mL/min/1.73 m2) ?| With Kidney Damage ?| ?Without Kidney Damage+ --------+ --------+ +| ?>90 ?| ?Stage one ?| ? Normal ?+ ---+ ---+ -------+| ?60-89 ?| ?Stage two ?| ? Decreased GFR ? + --+ --+ ------+| ?30-59 ?| ?Stage three ?| ? Stage three ? + --+ --+ ------+| ?15-29 ?| ?Stage four ? | ? Stage four ?+ ---+ ---+ -------+| ?<15 (or dialysis) ? ?| ?Stage five ? | ? Stage five ?+ ---+ ---+ -------+ *Each stage assumes the associated GFR level has been in effect for at least three months. ?Stages 1 to 5, with or without kidney disease, indicate chronic kidney disease. Notes: Determination of stages one and two (with eGFR >59mL/min/1.73 m2) requires estimation of kidney damage for at least three months as defined by structural or functional abnormalities of the kidney, manifested by either:Pathological abnormalities or Markers of kidney damage (including abnormalities in the composition of the blood or urine or abnormalities in imaging tests). Lab Interpretation Abnormal (test code = 29128-5) [facility]22-[facility] 02:23:34 Test Item Value Reference Range Interpretation Comments LIPASE (test code = 3895142150) 215 U/L 0-220 Lab Interpretation (test code = Normal 60576-7) [facility] WITH [id number] 02:13:14 Test Item Value Reference Range Interpretation Comments WBC (test code = See_Comment H [Automated 3390-2) message] The sy stem which generated this result transmitted reference range : 4.30 - 11.10 10*3/?L. The reference range was not used to interpret this result as normal/abnormal . RBC (test code = See_Comment [Automated 007-8) message] The sy stem which generated this result transmitted reference range : 3.93 - 5.25 10*6/?L. The reference range was not used to interpret this result as normal/abnormal . HGB (test code = 13.9 g/dL 11.6-15 718-7) HCT (test code = 41.6 % 35.7-45.2 4544-3) MCV (test code = 93.3 fL 80.6-95.5 787-2) MCH (test code = 31.2 pg 25.9-32.8 785-6) MCHC (test code = 33.4 g/dL 31.6-35.1 786-4) RDW-SD (test code = 43.1 fL 39-49.9 24781-2) RDW-CV (test code = 12.6 % 12-15.5 788-0) PLT (test code = See_Comment [Automated 777-3) message] The sy stem which generated this result transmitted reference range : 166 - 358 10*3/ ?L. The reference r lloyd was not used to interpret this result as normal/abnormal . MPV (test code = 10.2 fL 9.5-12.9 38841-4) NRBC/100 WBC (test See_Comment [Automat ed code = 6120883650) message] The system which generated this result transmitted reference range : 0.0 - 10.0 /100 WBCs. The refer ence range was not u sed to interpret th is result as normal/abnormal . NRBC x10^3 (test code See_Comment [Auto mated = 8427991708) message] The s ystem which generated this result transmitted reference range : 10*3/?L. The reference range was not used to interpret this result as normal/abnormal . GRAN MAT (NEUT) % 63.8 % (test code = 770-8) IMM GRAN % (test code 0.90 % = 0751074224) LYMPH % (test code = 25.8 % 736-9) MONO % (test code = 7.0 % 5905-5) EOS % (test code = 2.1 % 713-8) BASO % (test code = 0.4 % 706-2) GRAN MAT x10^3(ANC) 7.43 10*3/uL 1.88-7.09 H (test code = 7495604968) IMM GRAN x10^3 (test 0.11 10*3/uL 0-0.06 H code = 9834034694) LYMPH x10^3 (test code 3.01 10*3/uL 1.32-3.29 = 731-0) MONO x10^3 (test code 0.82 10*3/uL 0.33-0.92 = 742-7) EOS x10^3 (test code = 0.24 10*3/uL 0.03-0.39 711-2) BASO x10^3 (test code 0.05 10*3/uL 0.01-0.07 = 704-7) Lab Interpretation Abnormal (test code = 36582-3) [facility] [id number] 13:41:00 Test Item Value Reference Range Interpretation Comments LAB AP CPT CODE (BIRD) (test code = 62144 2749)"
[2022-08-25 11:46] LABS: Hematocrit 40.6 % (36.0-45.0); Lymphocytes % 27.5 % (15.3-44.8); MCV 90.6 fL (80-100); MPV 7.5 fL (7.6-11.3); RBC Red Blood Cell Count 4.48 M/uL (3.86-4.86)
[2022-08-25] MEDS ORDERED: KETOROLAC 30 MG/ML INJ ONE (11:55)
[2022-08-25 12:04] LABS: Albumin 3.7 g/dL (3.4-5.0); Bilirubin Total 0.3 mg/dL (0.2-1.0); Potassium 3.7 mEq/L (3.5-5.1); Protein, Total 7.1 g/dL (6.4-8.2)
--- NOTE | 2022-08-25 12:25 | RAD REPORT ---
EXAM DESCRIPTION: CT - Abdomen Pelvis W Contrast - 08/25/2022 12:17 pm CLINICAL HISTORY: abd cramping, diarrhea COMPARISON: No comparisons TECHNIQUE: Thin cut axial CT imaging of the abdomen and pelvis was performed following intravenous a dministration of 100 mL Isovue 300. Multiplanar reformats were generated and reviewed. All CT scans are performed using dose optimization technique as appropriate and may include automated exposure control or mA/KV adjustment according to patient size. FINDINGS: No suspicious findings in the lung bases. The liver, spleen, and pancreas show no suspicious findings. Gallbladder and biliary tree are also wi thout suspicious finding. Symmetric renal function is seen with no hydronephrosis or suspicious renal mass. No dilated bowel loops or bowel wall thickening. No free air, free fluid or inflammatory stranding. N o hernia, mass or bulky lymphadenopathy. The urinary bladder is without significant finding. Status p ost hysterectomy. No suspicious bony findings. IMPRESSION: No acute intra-abdominal process.
--- NOTE | 2022-08-25 12:39 | EDPHYS ---
Physician Documentation [facility] Name: Sera Gonzalez Age: 62 yrs Sex: Female : 1960 Arrival Date: 08/25/2022 Time: 11:15 Bed 17 Private MD: ED Physician Peewee Javier HPI: 08/25 11:27 This 62 yrs old Female presents to ER via Ambulatory with complaints of bs3 Diarrhea, Leg Pain, Dry Mouth. 11:27 62yo f hx of anxiety, hld presents with diarrhea for 3 weeks, watery, no blood, no bs3 recent travel, she notes yesterday some leg pain without weakness, no fever or chills, she has assoicatd dry mouth. She saw her pcp Servando who prescribed multiple medications including levofloxacin but hasn't done any tsting. She follows w Sweat, had a normal colonscopy 8 mo ago. Historical: - Allergies: 11:27 No Known Allergies; nj1 - PMHx: 11:23 Anxiety; High Cholesterol; nj1 - Immunization history:: Client reports receiving the 2nd dose of the Covid vaccine. - Social history:: Smoking status: Patient/guardian denies using tobacco, Stopped _ months ago 8. ROS: 11:27 Constitutional: Negative for fever, chills bs3 11:27 All other systems are negative. Exam: 11:27 Constitutional: This is a well developed, well nourished patient who is awake, alert, bs3 and in no acute distress. Head/Face: Normocephalic, atraumatic. Eyes: Pupils equal round and reactive to light, extra-ocular motions intact. Lids and lashes normal. ENT: mmm, no posterior phyarngeal erythema Chest/axilla: Normal chest wall appearance and motion. Nontender with no deformity. No lesions are appreciated. Cardiovascular: Regular rate and rhythm with a normal S1 and S2. symmetric pulses in upper extremities Respiratory: Lungs have equal breath sounds bilaterally, clear to auscultation, no respiratory distress Abdomen/GI: Soft, non-tender, no rebound or guarding Skin: Warm, dry with normal turgor. Normal color with no rashes, no lesions, and no evidence of cellulitis. MS/ Extremity: Pulses equal, no cyanosis. Neurovascular intact. Full, normal range of motion. Neuro: Awake and alert, GCS 15, oriented to person, place, time, and situation. Cranial nerves II-XII grossly intact. Motor strength 5/5 in all extremities. Sensory grossly intact. Psych: Awake, alert, with orientation to person, place and time. Behavior, mood, and affect are within normal limits. Pt anxious, pt worried about crohns disease Vital Signs: 11:20 BP 153 / 80; Pulse 108; Resp 18; Temp 98.4; Pulse Ox 98% ; Weight 67.59 kg; Height 5 nj1 ft. 6 in. ; Pain 3/10; 11:43 BP 136 / 74; Pulse 99; Resp 18 S; Pulse Ox 99% on R/A; Pain 0/10; kc6 12:32 BP 122 / 69; Pulse 81; Resp 17 S; Pulse Ox 94% on R/A; kc6 11:20 Body Mass Index 24.05 (67.59 kg, 167.64 cm) nj1 11:20 Pain Scale: Adult nj1 11:43 Pain Scale: Adult kc6 MDM: 11:18 Patient medically screened. bs3 11:27 Differential diagnosis: Nonspecific abd pain, gastritis, pancreatitis, viral bs3 gastroenteritis, gastroenteritis, possible function, ibs, possible crohns, but no hx and normal colonoscopy, possible pancreatitis/chronic, possible crypto or other atypical infectious process. Data reviewed: vital signs, nurses notes. ED course: will do ct. 12:06 ED course: labs normal. bs3 12:09 ED course: labs neg for acute abnormalities. bs3 12:36 ED course: CT negative for acute intra-abdominal pathology as interpreted by myself Per bs3 radiology no acute findings advised outpatient follow-up with gastroenterology for further work-up of her chronic diarrhea. 12:36 ED course: Patient not able to give stool sample here. bs3 08/25 11:27 Order name: CBC with Diff; Complete Time: 12:06 bs3 08/25 11:27 Order name: CMP; Complete Time: 12:06 bs3 08/25 11:27 Order name: Lipase; Complete Time: 12:06 bs3 08/25 11:27 Order name: CT Abd/Pelvis - IV Contrast Only; Complete Time: 12:35 bs3 08/25 11:27 Order name: IV Saline Lock; Complete Time: 11:41 bs3 08/25 11:27 Order name: Labs collected and sent; Complete Time: 11:41 bs3 Administered Medications: 11:42 Drug: NS 0.9% IV 1000 ml Route: IV; Rate: 1 bolus; Site: left antecubital; kc6 11:50 Drug: Ketorolac IVP 15 mg Route: IVP; Site: left antecubital; kc6 12:44 Follow up: Response: No adverse reaction; Pain is decreased kc6 Disposition Summary: 08/25/22 12:38 Discharge Ordered Location: Home bs3 Problem: new bs3 Symptoms: are unchanged bs3 Condition: Stable bs3 Diagnosis - Diarrhea, unspecified bs3 Followup: bs3 - With: Private Physician - When: 2 - 3 days - Reason: Re-evaluation by your physician Followup: bs3 - With: Scottie Ochoa MD - When: 1 week - Reason: Re-evaluation by your physician Discharge Instructions: - Discharge Summary Sheet bs3 - Food Choices to Help Relieve Diarrhea, Adult bs3 - Diarrhea, Adult bs3 Forms: - Medication Reconciliation Form bs3 - Thank You Letter bs3 Signatures: Dispatcher [employer] Kiley Reed RN RN kc6 Peewee Javier MD MD bs3 Marline Rivera RN RN nj1 Corrections: (The following items were deleted from the chart) 11:28 11:24 Social history: Smoking status: Patient/guardian denies using tobacco, but has a nj1 distant history of tobacco abuse, nj1
--- NOTE | 2022-08-25 12:39 | ER ---
Nurse's Notes [facility] Name: Sera Gonzalez Age: 62 yrs Sex: Female : 1960 Arrival Date: 08/25/2022 Time: 11:15 Bed 17 Private MD: Diagnosis: Diarrhea, unspecified Presentation: 08/25 11:20 Chief complaint: Patient states: Diarrhea for almost 3 weeks, has seen PCP twice. I had nj1 a good day yesterday but woke up with diarrhea. Both legs are hurting. "my mouth is so dry". Ebola Screen: Patient denies travel to an Ebola-affected area in the 21 days before illness onset. Initial Sepsis Screen: Does the patient meet any 2 criteria? HR > 90 bpm. No. Patient's initial sepsis screen is negative. Does the patient have a suspected source of infection? No. Patient's initial sepsis screen is negative. Risk Assessment: Do you want to hurt yourself or someone else? Patient reports no desire to harm self or others. Onset of symptoms was August 04, 2022. 11:20 Method Of Arrival: Ambulatory [facility] 11:20 Acuity: SHAKA 3 nj1 11:20 Coronavirus screen: Vaccine status: Patient reports receiving the 2nd dose of the covid nj1 vaccine. Historical: - Allergies: 11:27 No Known Allergies; nj1 - PMHx: 11:23 Anxiety; High Cholesterol; nj1 - Immunization history:: Client reports receiving the 2nd dose of the Covid vaccine. - Social history:: Smoking status: Patient/guardian denies using tobacco, Stopped _ months ago 8. Screenin:42 [facility] ED Fall Risk Assessment (Adult) History of falling in the last 3 months, kc6 including since admission No falls in past 3 months (0 pts) Confusion or Disorientation No (0 pts) Intoxicated or Sedated No (0 pts) Impaired Gait No (0 pts) Mobility Assist Device Used No (0 pt) Altered Elimination No (0 pt) Score/Fall Risk Level 0 - 2 = Low Risk Oriented to surroundings, Maintained a safe environment, Educated pt \\T\\ family on fall prevention, incl call for assistance when getting out of bed, Assessed \\T\\ reinforced patient's understanding of fall precautions, Hourly rounding (assess needs \\T\\ fall precautionary measures) done. Abuse screen: Denies threats or abuse. Denies injuries from another. Nutritional screening: No deficits noted. Tuberculosis screening: No symptoms or risk factors identified. Assessment: 11:42 General: Appears in no apparent distress. comfortable, Behavior is calm, cooperative, kc6 appropriate for age. Pain: Complains of pain in right leg and left leg Quality of pain is described as aching. Neuro: Davis Agitation-Sedation Scale (RASS): 0 - Alert and Calm Level of Consciousness is awake, alert, obeys commands, Oriented to person, place, time, situation, Appropriate for age. Cardiovascular: Capillary refill < 3 seconds. Respiratory: Airway is patent Trachea midline Respiratory effort is even, unlabored, Respiratory pattern is regular, symmetrical. GI: Abdomen is flat, non-distended, Bowel sounds present X 4 quads. Abd is soft and non tender X 4 quads. Reports diarrhea, Patient currently denies abdominal pain, nausea, vomiting. : No signs and/or symptoms were reported regarding the genitourinary system. EENT: No signs and/or symptoms were reported regarding the EENT system. Derm: No signs and/or symptoms reported regarding the dermatologic system. Skin is intact, Skin is pink, warm \\T\\ dry. Musculoskeletal: No signs and/or symptoms reported regarding the musculoskeletal system. Circulation, motion, and sensation intact. Capillary refill < 3 seconds, Range of motion: intact in all extremities. 12:31 Reassessment: Patient appears in no apparent distress at this time. No changes from kc6 previously documented assessment. Patient and/or family updated on plan of care and expected duration. Pain level reassessed. Patient is alert, oriented x 3, equal unlabored respirations, skin warm/dry/pink. 12:38 Reassessment: d/c pending fluid completion. kc6 Vital Signs: 11:20 BP 153 / 80; Pulse 108; Resp 18; Temp 98.4; Pulse Ox 98% ; Weight 67.59 kg; Height 5 nj1 ft. 6 in. ; Pain 3/10; 11:43 BP 136 / 74; Pulse 99; Resp 18 S; Pulse Ox 99% on R/A; Pain 0/10; kc6 12:32 BP 122 / 69; Pulse 81; Resp 17 S; Pulse Ox 94% on R/A; kc6 11:20 Body Mass Index 24.05 (67.59 kg, 167.64 cm) nj1 11:20 Pain Scale: Adult nj1 11:43 Pain Scale: Adult kc6 ED Course: 11:18 Patient arrived in ED. mr 11:18 Peewee Javier MD is Attending Physician. bs3 11:23 Triage completed. nj1 11:24 Arm band placed on left wrist. nj1 11:28 Kiley Camarena RN is Primary Nurse. kc6 11:42 Inserted saline lock: 20 gauge in left antecubital area, using aseptic technique. Blood kc6 collected. 11:43 Patient has correct armband on for positive identification. Bed in low position. Call kc6 light in reach. Side rails up X 1. 12:18 CT Abd/Pelvis - IV Contrast Only In Process Unspecified. EDMS 12:37 Scottie Ochoa MD is Referral Physician. bs3 13:12 No provider procedures requiring assistance completed. IV discontinued, intact, kc6 bleeding controlled, No redness/swelling at site. Pressure dressing applied. Administered Medications: 11:42 Drug: NS 0.9% IV 1000 ml Route: IV; Rate: 1 bolus; Site: left antecubital; kc6 11:50 Drug: Ketorolac IVP 15 mg Route: IVP; Site: left antecubital; kc6 12:44 Follow up: Response: No adverse reaction; Pain is decreased kc6 Medication: 13:13 VIS not applicable for this client. kc6 Outcome: 12:38 Discharge ordered by . bs3 13:12 Discharged to home ambulatory. kc6 13:12 Condition: stable 13:12 Discharge instructions given to patient, Instructed on discharge instructions, follow up and referral plans. Demonstrated understanding of instructions, follow-up care. 13:13 Patient left the ED. kc6 Signatures: Dispatcher [employer] [facility] Sera Parra mr Kiley Camarena, RN RN kc6 Peewee Javier MD MD bs3 Marline Rivera RN RN nj1 Corrections: (The following items were deleted from the chart) 11:24 11:20 BP 153 / 80; Pulse 108bpm; Resp 18bpm; Pulse Ox 98%; Temp 98.4F; nj1 nj1 11:27 11:20 BP 153 / 80; Pulse 108bpm; Resp 18bpm; Pulse Ox 98%; Temp 98.4F; Pain 8/10, nj1 Adult; nj1 11:28 11:24 Social history: Smoking status: Patient/guardian denies using tobacco, but has a nj1 distant history of tobacco abuse, nj1
[2022-08-25 13:18] VITALS: TEMP 98.4
[2022-08-25 13:21] VITALS: BP 122/69; O2SAT 94
== END 2022-08-25 13:13 | disposition home or self-care (01) ==
LOC: ER 11:15
DX: R19.7 Diarrhea, unspecified (principal); E78.00 Pure hypercholesterolemia, unspecified
CPT/HCPCS: 85025; 36415; 83690; 80053; 74177; 96374; 99284; Q9967

== ENCOUNTER 2024-03-08 10:30 | Day surgery (SDC) | payer OTHER ==
[2024-03-07 14:48] LABS: Absolute Eosinophils 0.1 K/uL (0-0.5); Absolute Lymphocytes (CBC) 1.2 K/uL (0.7-4.9); Absolute Monocytes 0.5 K/uL (0.1-1.3); Absolute Neutrophil 8.6 K/uL (1.8-8.0); Basophils % 0.5 % (0-1.3); Eosinophils % 1.1 % (0-4.4); Hematocrit 42.9 % (36.0-45.0); Hemoglobin 14.4 g/dL (12.0-15.0); Lymphocytes % 11.2 % (15.3-44.8); MCH 30.4 pg (27.0-35.0); MCHC 33.5 g/dL (32.0-36.0); MCV 90.8 fL (80-100); MPV 9.1 fL (7.6-11.3); Monocytes % 4.3 % (3.3-12.3); Neutrophils % 82.9 % (41.7-73.7); Nucleated RBC Absolute Count 0.1 (0-0); Nucleated Red Blood Cells % 0.5 % (0-0); Platelets 298 thou/uL (152-406); RBC Red Blood Cell Count 4.72 M/uL (3.86-4.86); Red Cell Distribution Width 13.2 % (12.1-15.2)
[2024-03-07 15:05] LABS: Anion Gap 9.6 mEq/L (5.0-15.0); Potassium 3.6 mEq/L (3.5-5.1)
[2024-03-08] MEDS: Ringers Lactate 1,000 ML IV ONE (10:55)
[2024-03-08] MEDS ORDERED: propofoL 200 MG/20 ML VIAL IV ONE (11:25)
[2024-03-08] MEDS ORDERED: ONDANSETRON 4 MG/2 ML VIAL ONE (11:25)
[2024-03-08] MEDS ORDERED: ROCURONIUM 50 MG/5 ML VIAL IV ONE (11:25)
[2024-03-08] MEDS ORDERED: FENTANYL CITR 100 MCG/2 ML ONE (11:25)
[2024-03-08] MEDS ORDERED: MIDAZOLAM HCL 2 MG/2 ML INJ ONE (11:25)
[2024-03-08] MEDS ORDERED: LIDOCAINE 2% MPF 5 ML VIAL ONE (11:25)
[2024-03-08] MEDS ORDERED: dexAMETHasone 10 MG/ML VIAL ONE (12:59)
[2024-03-08] MEDS: CEFAZOLIN SODIUM 2 GM/VIAL ONE (13:01)
[2024-03-08] MEDS ORDERED: LIDOCAINE HCL/EPINEPHRINE 20 ML MDV ONE (13:04)
[2024-03-08] MEDS ORDERED: NEOSTIGMINE 1 MG/ML -10 ML VIAL ONE (13:46)
[2024-03-08] MEDS ORDERED: GLYCOPYRROLATE 0.2 MG/ML SYR ONE (13:46)
[2024-03-08] MEDS ORDERED: KETOROLAC 30 MG/ML INJ ONE (13:51)
--- NOTE | 2024-03-08 14:06 | P.OP ---
Preoperative diagnosis: Umbilical Hernia Postoperative diagnosis: Umbilical Hernia Primary procedure: Laparoscopic Umbilical Hernia Anesthesia: GETA + Local Estimated blood loss: < 5cc Specimen: none Findings: Periumbilical Hernia ~ 2cm Complications: None Implants: Bard Ventralite ST 11.4cm Round, Sorbafix x 45 Transferred to: Recovery Room Condition: Good
[2024-03-08] MEDS: HYDROMORPHONE HCL 1 MG/ML INJ ONE (14:20)
[2024-03-08] MEDS: HYDROCODONE/APAP 7.5/325 MG TAB ONE (15:27)
[2024-03-08 17:16] VITALS: BP 130/61; TEMP 97.1; O2SAT 97
--- NOTE | 2024-03-09 00:33 | OP ---
Date of Procedure: 03/08/2024 Surgeon: Issa Mosquera MD, Preoperative Diagnosis: Umbilical hernia. Postoperative Diagnosis: Umbilical hernia. Procedure: Laparoscopic umbilical hernia repair with mesh. Anesthesia: General endotracheal plus local 1% lidocaine with epinephrine. Estimated Blood Loss: 5 cc. Specimen: None. Findings: The umbilical hernia is approximately 2 cm in size, incarcerated adipose tissue contained within. Complications: None. Implants: Bard Ventralight ST mesh with Echo Positioning System, 11.4 cm round mesh utilized, SorbaF ix absorbable fixation tacks x45. Disposition: The patient was transferred to recovery room in good condition. Procedure In Detail: After informed consent was obtained, the patient was brought into the operating room, prepped and draped in the usual sterile fashion. After adequate anesthesia was achieved, I an esthetized an area in the left upper quadrant down to subcutaneous tissues. 5-mm 0-degree optical tr ocar was introduced in the abdomen without incident or complication. Insufflation was obtained to 15 mmHg at this time. There was no injury to vital structures upon entering the abdomen. Additional t rocar was placed in the left mid abdomen. There was a 12 mm trocar placed under direct vision withou t incident or complication. At this point, there were no injury to vital structures upon entering th e abdomen. I used a LigaSure device to take down the preperitoneal fat from the umbilical hernia, wh ich is incarcerated approximately 2 cm and 1 cm in size. At this point, after all this tissue was re moved using the LigaSure device, I used an Endo Stitch with 0 V-Loc suture to close and imbricate the hernia sac in the periumbilical position to close with good apposition of the tissues. At this poin t, I then deployed an 11.[address] mesh with Echo Positioning System in the central po rtion of the defect and the periumbilical skin, ultimately deployed the balloon at this point and sec ured the mesh to the anterior abdominal wall using SorbaFix absorbable fixation tacks. We then remov ed the balloon deployment system and found to be intact on the back table. Ultimately, a total of 45 absorbable tacks were used to secure the mesh to the anterior abdominal wall. At this point, there was no hemostatic measures required. I then desufflated the abdomen slightly and closed the 12 mm tr ocar site using a Anupam-Anthony suture passer with 0 Vicryl in an interrupted fashion with good candace roximation of tissues. The abdomen was desufflated under direct vision without incident or complicat ion. At this point, all skin incisions were then copiously irrigated and closed with a 4-0 Monocryl in a running fashion. Dermabond was placed over top. The patient tolerated the procedure well witho ut incident or complication and transferred to PACU in good condition. All counts were correct at th e end of the case. TRACY/LUPIS Voice ID: [id number] Report ID: [id number]
== END 2024-03-08 16:10 | disposition home or self-care (01) ==
LOC: OR 10:30
PROVIDERS: ATTEND Surgery
PROC: 0WUF4JZ Supplement Abdominal Wall with Synthetic Substitute, Percutaneous Endoscopic Approach (ICD-10-PCS; principal; 2024-03-08 12:30)
DX: K42.9 Umbilical hernia without obstruction or gangrene (principal); J45.909 Unspecified asthma, uncomplicated; F41.9 Anxiety disorder, unspecified
CPT/HCPCS: 85025; 80048; 36415; 49592; J2704; J2710; J2003; J2250; J3010; J1100; J1171; J2405; J7120; C1781